=== PATIENT | male | born 1995 | race Caucasian/White ===

== ENCOUNTER 2021-08-06 14:22 | Outpatient (CLI) | payer OTHER, SELFPAY ==
[2021-08-06 18:18] LABS: ALB/GLOB Ratio 1.6 RATIO (0.9-2.4); AST(SGOT) 11 U/L (15-37); Alanine Aminotransfer ALT/SGPT 22 U/L (16-61); Albumin, Serum 4.7 g/dL (3.2-5.0); Alkaline Phosphatase 44 U/L (45-117); Anion Gap 5 (5-15); BUN 21 mg/dL (7-18); BUN/Creat Ratio 22.2 RATIO (10-20); Calcium,Total 8.9 mg/dL (8.5-10.1); Chloride 101 mmol/L (98-107); Cholesterol 147 mg/dL (200); Creatinine, Serum 0.95 mg/dL (0.70-1.30); EST Glomerular Filtration Rate 104 mL/min (>60); Est Glom Filt Rate - Afr Amer 126 mL/min (>60); Globulin 2.9 g/dL (2.2-4.2); Glucose 66 mg/dL (74-106); High Density Lipoprotein 73 mg/dL; Potassium 4.3 mmol/L (3.5-5.1); Protein, Total 7.6 g/dL (6.4-8.2); Sodium Level 137 mmol/L (136-145); Triglycerides 42 mg/dL; Very Low Density Lipoprotein 8 mg/dL (5-40)
== END 2021-08-06 23:59 | disposition home or self-care (01) ==
LOC: MTLAB 14:26
PROVIDERS: PCP Family Medicine; Referring Provider Family Medicine; Visit Provider Family Medicine
DX: Z00.00 Encounter for general adult medical examination without abnormal findings (principal)
CPT/HCPCS: 36415; 80053; 80061

== ENCOUNTER 2021-09-27 09:44 | Outpatient (CLI) | payer OTHER, SELFPAY ==
[2021-09-27 13:04] LABS: Hepatitis B Surface Antibody Non-Reactive
== END 2021-09-27 23:59 | disposition home or self-care (01) ==
LOC: MTLAB 09:45
PROVIDERS: PCP Family Medicine; Referring Provider Nurse Practitioner Family; Visit Provider Nurse Practitioner Family
DX: Z23 Encounter for immunization (principal)
CPT/HCPCS: 36415; 86706